=== PATIENT | female | born 2005 | race Two or more races ===

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

== ENCOUNTER 2023-04-15 18:58 | Emergency (ER) | payer BC, OTHER ==
[~2023-04-15] VITALS: Ht 152.4 cm; Wt 66.5 kg
[2023-04-15 22:17] VITALS: BP 141/72; PULSE 87; RESP 18; TEMP 98.1; O2SAT 99
[2023-04-16] MEDS ORDERED: CEPH500T PO (00:20)
== END 2023-04-16 00:20 | disposition home or self-care (01) ==
LOC: ER 18:58
DX: S61.217A Laceration without foreign body of left little finger without damage to nail, initial encounter (principal); W26.0XXA Contact with knife, initial encounter; Y93.89 Activity, other specified; Y92.89 Other specified places as the place of occurrence of the external cause; Y99.8 Other external cause status
CPT/HCPCS: 12001